=== PATIENT | female | born 1985 | race Caucasian/White ===

== ENCOUNTER 2022-05-26 18:38 | Emergency (ER) | payer MEDICARE, MEDICAID, SELFPAY ==
[2022-05-26 18:48] VITALS: BMI 30.2
[2022-05-26 19:06] VITALS: BP 113/74; PULSE 120; RESP 18; TEMP 37.2; O2SAT 95
[2022-05-26 19:31] LABS: Appearance Urine Cloudy; Color Urine Yellow; Glucose Urine UA Negative (Negative); Leukocyte Esterase Urine Moderate (2+) (Negative); Nitrite Urine Negative (Negative); Specific Gravity - Urine <= 1.005 (1.005-1.025); UMIC TRIGGER UA YES; Urine Blood Negative (Negative); Urine Ketones Negative (Negative); Urine Protein Negative (Neg-Trace)
[2022-05-26 19:39] LABS: UPreg QC Valid YES; Urine Pregnancy NEGATIVE (NEGATIVE)
[2022-05-26 19:40] LABS: Amphetamine Screen Urine Not Detected (Not Detect); Barbiturates, Urine Not Detected (Not Detect); Benzodiazepines Screen Urine Not Detected (Not Detect); Cannabinoid Screen Urine Not Detected (Not Detect); Cocaine Screen Urine Not Detected (Not Detect); Fentanyl, urine Not Detected (Not Detect); Opiate Screen Urine Not Detected (Not Detect); Phencyclidine Screen Urine Not Detected (Not Detect)
[2022-05-26 19:46] LABS: COVID-19 Test Negative (Negative); IDNOW Serial# 6674DD1D
--- NOTE | 2022-05-26 19:46 | ED_ITS ---
HPI - Psych General Chief Complaint: Psychiatric Symptoms Stated Complaint: crisis Time Seen by Provider: 05/26/22 18:47 Source: patient Mode of arrival: ambulatory Limitations: no limitations History of Present Illness HPI Narrative: Patient with history intellectual disability, mood disorder came from long term was very agitated with self-harm behavior had argument with the staff denies any SI/HI/AVH Related Data Home Medications Medication Instructions Recorded Confirmed benztropine 0.5 mg tablet 1 tab PO DAILY 05/26/22 05/26/22 citalopram 10 mg tablet 1 tab PO DAILY 05/26/22 05/26/22 clonidine HCl 0.2 mg tablet 1 tab PO TID 05/26/22 05/26/22 gabapentin 300 mg capsule 1 cap PO TID 05/26/22 05/26/22 lamotrigine 100 mg tablet 1 tab PO BID 05/26/22 05/26/22 lorazepam 0.5 mg tablet 1 tab PO BID PRN Anxiety 05/26/22 05/26/22 risperidone 0.25 mg tablet 1 tab PO BID PRN Agitation 05/26/22 05/26/22 risperidone 1 mg tablet (Risperdal) 1 tab PO QAM 05/26/22 05/26/22 risperidone 2 mg tablet (Risperdal) 1 tab PO DAILY@1600 05/26/22 05/26/22 Allergies Allergy/AdvReac Type Severity Reaction Status Date / Time No Known Allergies Allergy Unverified 02/11/20 16:06 [No Known Allergies*] Review of Systems Review of Systems: Yes all other systems are reviewed and are negative PMFSH Past Medical History Medical History Cerebral palsy Intellectual disability Seizures Social History Social History Advance Directives: No Advance Directives Information Provided: No Physical Exam Vital Signs: Vital Signs: Last Vital Signs Temp 99 F 05/26/22 19:06 Pulse 120 H 05/26/22 19:06 Resp 18 05/26/22 19:06 BP 113/74 05/26/22 19:06 Pulse Ox 95 05/26/22 19:06 O2 Del Method 05/26/22 19:06 BMI result Body Mass Index 30.2 Appearance: Alert. Oriented X3. No acute distress. Eyes: PERRLA, No Nystagmus ENT: Pharynx normal. Oral Mucosa moist Neck: Normal inspection. Neck supple. CVS: Normal heart rate and rhythm. Pulses normal. Respiratory: No respiratory distress. Equal air entry bilateral, no wheezing/rales/rhonchi Abdomen: Soft and nontender. Bowel sounds are present, no mass palpable, no CVA tenderness Skin: Skin warm and dry. Normal skin color. Normal skin turgor. Extremities: No lower extremity edema. No calf tenderness psych: Anxious , unable to focus denies any SI or HI Neuro: Oriented X 3. No motor deficit. No sensory deficit.No cerebellar signs , cranial nerves II-XII intact Medications Administered Generic Name Dose Route Start Last Admin Trade Name Freq PRN Reason Stop Dose Admin Clonidine HCl 0.2 mg 05/26/22 21:45 05/26/22 22:17 Clonidine Hcl 0.2 Mg Tablet PO 0.2 mg TID ARIANA Administration Protocol Gabapentin 300 mg 05/26/22 21:45 05/26/22 22:17 Gabapentin 300 Mg Capsule PO 300 mg TID ARIANA Administration Lamotrigine 100 mg 05/26/22 21:45 05/26/22 22:17 Lamotrigine 100 Mg Tablet PO 100 mg BID ARIANA Administration Lorazepam 0.5 mg 05/26/22 21:39 05/26/22 22:17 Lorazepam 0.5 Mg Tablet PO 0.5 mg BID PRN Administration Anxiety Risperidone 2 mg 05/27/22 16:00 05/26/22 22:17 Risperidone 2 Mg Tablet PO 2 mg DAILY@1600 ARIANA Administration Medical Decision Making Medical Decision Making MDM Narrative: Will get case management to evaluate the patient for increased agitation at long term patient UA showed moderate amount of wbc's and bacteria fall the patient is symptomatic not sure will start patient on antibiotics for UTI Lab Data [facility] Lab Attestation statement: I reviewed the patient's lab results. Labs: Lab Results 05/26/22 05/26/22 05/26/22 Range/Units 19:20 19:20 19:20 Urine Color Yellow Urine Appearance Cloudy Urine pH 6.0 (5.0-9.0) Ur Specific [place] <= 1.005 (1.005-1.025) Urine Protein Negative (Neg-Trace) mg/dL Urine Glucose (UA) Negative (Negative) mg/dL Urine Ketones Negative (Negative) mg/dL Urine Blood Negative (Negative) Urine Nitrite Negative (Negative) Ur Leukocyte Esterase Moderate (2+) H (Negative) Urine RBC 0-2 (0-2) /HPF Urine WBC 11-20 H (0-5) /HPF Ur Squamous Epith Cells 6-10 (0-2) /HPF Urine Bacteria Trace (None Seen) Hyaline Casts 0-2 (0-2) /LPF Urine Test (NEGATIVE) Urine Opiates Screen Not Detected (Not Detect) Urine Fentanyl Screen Not Detected (Not Detect) Ur Barbiturates Screen Not Detected (Not Detect) Ur Phencyclidine Scrn Not Detected (Not Detect) Ur Amphetamines Screen Not Detected (Not Detect) U Benzodiazepines Scrn Not Detected (Not Detect) Urine Cocaine Screen Not Detected (Not Detect) U Marijuana (THC) Screen Not Detected (Not Detect) COVID-19 (ALEKSANDR) Negative (Negative) [place] See Note 05/26/22 Range/Units 19:20 Urine Color Urine Appearance Urine pH (5.0-9.0) Ur Specific [place] (1.005-1.025) Urine Protein (Neg-Trace) mg/dL Urine Glucose (UA) (Negative) mg/dL Urine Ketones (Negative) mg/dL Urine Blood (Negative) Urine Nitrite (Negative) Ur Leukocyte Esterase (Negative) Urine RBC (0-2) /HPF Urine WBC (0-5) /HPF Ur Squamous Epith Cells (0-2) /HPF Urine Bacteria (None Seen) Hyaline Casts (0-2) /LPF Urine Test NEGATIVE (NEGATIVE) Urine Opiates Screen (Not Detect) Urine Fentanyl Screen (Not Detect) Ur Barbiturates Screen (Not Detect) Ur Phencyclidine Scrn (Not Detect) Ur Amphetamines Screen (Not Detect) U Benzodiazepines Scrn (Not Detect) Urine Cocaine Screen (Not Detect) U Marijuana (THC) Screen (Not Detect) COVID-19 (ALEKSANDR) (Negative) [employer] Com Discharge Plan Discharge Clinical Impression: Acute anxiety Patient Disposition: Still a Patient Prescriptions: No Action benztropine 0.5 mg tablet 1 tab PO DAILY citalopram 10 mg tablet 1 tab PO DAILY risperidone 0.25 mg tablet 1 tab PO BID PRN (Reason: Agitation) risperidone [Risperdal] 2 mg tablet 1 tab PO DAILY@1600 clonidine HCl 0.2 mg tablet 1 tab PO TID lorazepam 0.5 mg tablet 1 tab PO BID PRN (Reason: Anxiety) gabapentin 300 mg capsule 1 cap PO TID risperidone [Risperdal] 1 mg tablet 1 tab PO QAM lamotrigine 100 mg tablet 1 tab PO BID
[2022-05-26 20:24] LABS: Bacteria Urine Trace (None Seen); Hyaline Casts Urine 0-2 /LPF (0-2); RBC Urine 0-2 /HPF (0-2)
[2022-05-26] MEDS: Gabapentin 300 MG CAPSULE PO (22:17)
[2022-05-26] MEDS: LORazepam 0.5 MG TABLET PO (22:17)
[2022-05-26] MEDS: risperiDONE 2 MG TABLET PO (22:17)
[2022-05-26] MEDS: cloNIDine HCL 0.2 MG TABLET PO (22:17)
[2022-05-26] MEDS: lamoTRIgine 100 MG TABLET PO (22:17)
--- NOTE | 2022-05-26 22:35 | MHC.EDTECH ---
Patient told this adjusto writer operator that she would let this adjusto writer operator do her bloodwork only with a butterfly needle unable to find a butterfly needle now patient refuse RN was notified.
--- NOTE | 2022-05-27 00:33 | PC.NURSE ---
Patient is currently in bed appears sleeping, no distress observed/reported at this time, behavior hyper-verbal with multiple needs and questions, blood draws pending, charge nurse asked for help for lab draw @ 1930, no techs staffed for ED POD from 1900 to 2300, no help so far/provider made aware/Okayed to have lab drawn in the morning when patient is awake, med rec completed/patient is compliant with his medication, care team consult completed/no care team clinician available, VSS, will continue to monitor.
[2022-05-27 03:37] LABS: MANUAL DIFF FLAG NO
[2022-05-27 03:39] LABS: Basophils Percent Auto 0.4 % (0-2); Eosinophils Absolute Auto 0.1 X10*3/uL (0.0-0.4); Eosinophils Percent Auto 1.1 % (0-4); Hematocrit 38.5 % (37.0-47.0); Hemoglobin 12.7 g/dl (12.0-16.0); Imm Gran Abs Auto 0.03 X10*3/uL (0.00-0.03); Imm Gran Pct Auto 0.4 % (0.0-0.4); Lymphocytes Absolute Auto 2.5 X10*3/uL (1.2-4.9); Mean Corpuscular Hemoglobin 30.5 pg (27.0-33.0); Mean Corpuscular Volume 92.3 fL (80.0-98.0); Mean Platelet Volume 12.9 fL (9.4-12.3); Monocytes Absolute Auto 0.6 X10*3/uL (0.1-1.2); Monocytes Percent Auto 7.7 % (2-11); Neutrophils Absolute Auto 4.8 x10*3/uL (2.0-8.3); Neutrophils Percent Auto 59.4 % (45-73); Platelet Count 137 X10*3/uL (160-400); Red Blood Count 4.17 X10*6/uL (4.20-5.50); Red Cell Distribution Width 13.8 % (11.0-16.0); White Blood Count 8.1 X10*3/uL (4.8-10.8)
[2022-05-27 03:57] LABS: Acetaminophen LAB < 1 mcg/mL (<30); Alanine Aminotransferase 16 U/L (0-31); Albumin Level 4.4 g/dL (3.5-5.0); Alkaline Phosphatase 80 U/L (39-117); Anion Gap 13 (12-20); Aspartate Amino Transferase 19 U/L (5-31); Bilirubin Total 0.7 mg/dL (0.0-1.0); Blood Urea Nitrogen 13 mg/dL (9-16); Calcium 9.6 mg/dL (8.4-10.2); Carbon Dioxide 24 mmol/L (22-29); Chloride 108 mmol/L (96-108); Creatinine Clr Calc Pharmacy 89.5; Estimated Glomerular Filt Rate > 60; Glucose Random 94 mg/dL (60-115); Potassium 4.1 mmol/L (3.3-5.1); Salicylate < 5.0 mg/dL (15-30); Sodium 141 mmol/L (135-145); Total Protein 7.2 g/dL (6.5-8.0)
--- NOTE | 2022-05-27 06:00 | PC.NURSE ---
Patient is currently in bed appears sleeping, patient was x 2 for bathroom use, patient was incontinence of bladder x1, labs draw completed, patient is + positive for UTI/abt treatment will begin this morning at 0900, will continue to monitor.
[2022-05-27 08:30] VITALS: BP 112/71; PULSE 97; RESP 16; TEMP 37.2; O2SAT 96
[2022-05-27] MEDS: LORazepam 0.5 MG TABLET PO (08:44)
[2022-05-27] MEDS: Nitrofurantoin Monohyd/M-Cryst 100 MG CAPSULE PO (08:46)
[2022-05-27] MEDS: Escitalopram Oxalate 5 MG TABLET PO (08:46)
[2022-05-27] MEDS: cloNIDine HCL 0.2 MG TABLET PO (08:46)
[2022-05-27] MEDS: risperiDONE 1 MG TABLET PO (08:47)
[2022-05-27] MEDS: Gabapentin 300 MG CAPSULE PO (08:47)
[2022-05-27] MEDS: Benztropine Mesylate 0.5 MG TABLET PO (08:47)
[2022-05-27] MEDS: Magnesium Hydrox/Alum Hydrox 30 ML ORAL.SUSP PO (08:49)
[2022-05-27] MEDS: lamoTRIgine 100 MG TABLET PO (08:50)
--- NOTE | 2022-05-27 09:07 | MHC.EDTECH ---
Pt was requesting a shower. Clean linen and towels provided.
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
[2022-05-27] MEDS: risperiDONE 0.25 MG TABLET PO (10:19)
== END 2022-05-27 10:39 | disposition home or self-care (01) ==
PROVIDERS: Emergency Provider Internal Medicine
DX: F41.9 Anxiety disorder, unspecified (principal); R45.1 Restlessness and agitation; F39 Unspecified mood [affective] disorder; G80.9 Cerebral palsy, unspecified; F79 Unspecified intellectual disabilities; Z79.899 Other long term (current) drug therapy; Z20.822 Contact with and (suspected) exposure to COVID-19
CPT/HCPCS: 36415; 80053; 80143; 80179; 80307; 81001; 81025; 85025; 87635; 99284; 99285; S9485

== ENCOUNTER 2022-06-01 06:51 | Emergency (ER) | payer MEDICARE, MEDICAID, SELFPAY ==
[2022-06-01 06:57] VITALS: BMI 36.1
--- NOTE | 2022-06-01 06:59 | ED.PSYCH ---
HPI - Psych General Chief Complaint: Psychiatric Symptoms Stated Complaint: ran away from longterm, needs eval Time Seen by Provider: 06/01/22 06:57 Source: patient and EMS Mode of arrival: EMS History of Present Illness HPI Narrative: This is a 37 years old female presented to the emergency department by ambulance after running away from the longterm, she has history of intellectual disability, she has history of seizure disorder, she has history of CP and mood disorder. She states that she wants to hurt herself. She has been in the past last last time May 26 complaint: suicidal ideation Onset (ago): hour(s) (2) Duration: resolved prior to arrival Relieving factors: none Exacerbating factors: none Associated psychiatric symptoms: suicidal ideation Associated symptoms: denies other symptoms Treatments prior to arrival: none Related Data Home Medications Medication Instructions Recorded Confirmed benztropine 0.5 mg tablet 1 tab PO DAILY 05/26/22 06/01/22 citalopram 10 mg tablet 1 tab PO DAILY 05/26/22 06/01/22 clonidine HCl 0.2 mg tablet 1 tab PO TID 05/26/22 06/01/22 gabapentin 300 mg capsule 1 cap PO TID 05/26/22 06/01/22 lamotrigine 100 mg tablet 1 tab PO BID 05/26/22 06/01/22 lorazepam 0.5 mg tablet 1 tab PO BID PRN Anxiety 05/26/22 06/01/22 risperidone 0.25 mg tablet 1 tab PO BID PRN Agitation 05/26/22 06/01/22 risperidone 1 mg tablet (Risperdal) 1 tab PO QAM 05/26/22 06/01/22 risperidone 2 mg tablet (Risperdal) 1 tab PO DAILY@1600 05/26/22 06/01/22 citalopram 20 mg tablet 1 tab PO DAILY 06/01/22 06/01/22 Allergies Allergy/AdvReac Type Severity Reaction Status Date / Time No Known Allergies Allergy Unverified 02/11/20 16:06 [No Known Allergies*] Review of Systems Constitutional: Constitutional: Reports no additional constitutional complaints and Denies headache(s) Eyes: Eyes: Reports no additional eye complaints and Denies loss of vision ENT: Reports system reviewed and no additional complaints, except as documented and Denies headache(s) Cardiovascular: Cardiovascular: Reports no additional cardiovascular complaints Gastrointestinal: Gastrointestinal: Reports no additional gastrointestinal complaints Neurologic: Denies confusion, Denies headache(s), Denies lack of coordination, Denies focal weakness, Denies loss of vision, Denies memory loss and Denies Other visual disturbances Psychiatric: Psychiatric: Denies confusion, Denies memory loss and Reports suicidal ideation [facility] Past Medical History Medical History Cerebral palsy Intellectual disability Seizures Social History Social History Advance Directives: No Guardian: Yes (Mimi Berger [phone] per medical record) Physical Exam Vital Signs: Vital Signs: Last Vital Signs Temp 98.9 F 06/01/22 07:06 Pulse 94 06/01/22 07:06 Resp 16 06/01/22 07:06 BP 110/72 06/01/22 07:06 Pulse Ox 96 06/01/22 07:06 O2 Del Method 06/01/22 07:06 BMI result Body Mass Index 36.1 She looks well he is not toxic-appearing no distress, cooperative Const: General: No confusion Orientation/consciousness: patient oriented x3 and No confusion HEENT: Head: Yes normal to inspection General nose exam: Normal external nose present Face and sinus: Yes normal facial exam Mouth: Normal oral and palatal mucosa present Throat: Yes posterior oropharynx normal Neck: Neck: Yes normal visual inspection and Yes full ROM Chest: Chest palpation & inspection: normal inspection of the chest Resp: Effort & Inspection: normal respiratory effort Auscultation: clear to auscultation bilaterally Cardio: Jugular venous distension: no JVD Rate: regular rate Rhythm: regular rhythm GI: Inspection: Yes normal to inspection Palpation (GI): Soft to palpation, not firm, nontender and no guarding Skin: General skin exam: no rashes or lesions noted, elasticity normal and turgor normal Lesions: no lesions Rashes: no rashes Neuro: General: patient oriented x3 and No confusion Cranial nerves: Yes CN's II-XII intact bilaterally Motor exam (neuro): 5/5 motor strength present throughout Extrem: General: Yes full ROM Psych: Mental Status: mental status grossly normal Speech and movement: Clear speech present Attitude: cooperative, not belligerent and not guarded Course Course Course Narrative: Seen by crisis team cleared for discharge Reevaluation(s) Reevaluation #1: no SI at this point Time: 11:58 Medications Administered Generic Name Dose Route Start Last Admin Trade Name Da PRN Reason Stop Dose Admin Benztropine Mesylate 0.5 mg 06/01/22 10:30 06/01/22 10:55 Benztropine Mesylate 0.5 Mg Tablet PO 0.5 mg DAILY ARIANA Administration Clonidine HCl 0.2 mg 06/01/22 10:45 06/01/22 10:55 Clonidine Hcl 0.2 Mg Tablet PO 0.2 mg TID ARIANA Administration Protocol Risperidone 1 mg 06/01/22 10:30 06/01/22 10:55 Risperidone 1 Mg Tablet PO 1 mg DAILY ARIANA Administration Discontinued Medications Generic Name Dose Route Start Last Admin Trade Name Da PRN Reason Stop Dose Admin Acetaminophen 650 mg 06/01/22 09:03 06/01/22 09:13 Acetaminophen 325 Mg Tablet PO 06/01/22 09:04 650 mg ONCE ONE Administration Medical Decision Making Differential Diagnosis Differential Diagnoses: The differential diagnosis associated with the presentation includes UTI, drug abuse, anxiety, major depression Admission/Observation Consideration of admission/observation: Escalation of care including admission/observation considered Consult Healthcare Provider Management of the patient was discussed with: Behavioral Health Provider Lab Data 06/01/22 08:38 06/01/22 08:38 Labs: Lab Results 06/01/22 06/01/22 06/01/22 Range/Units 07:15 07:15 08:38 WBC 7.3 (4.8-10.8) X10*3/uL RBC 4.39 (4.20-5.50) X10*6/uL Hgb 13.4 (12.0-16.0) g/dl Hct 40.8 (37.0-47.0) % MCV 92.9 (80.0-98.0) fL MCH 30.5 (27.0-33.0) pg MCHC 32.8 (31.0-35.0) g/dl RDW 13.6 (11.0-16.0) % Plt Count 145 L (160-400) X10*3/uL MPV 12.9 H (9.4-12.3) fL Immature Gran % (Auto) 0.3 (0.0-0.4) % Neut % (Auto) 82.9 H (45-73) % Lymph % (Auto) 11.8 L (20-40) % Pierce % (Auto) 4.3 (2-11) % Eos % (Auto) 0.1 (0-4) % Baso % (Auto) 0.6 (0-2) % Lymph # (Auto) 0.9 L (1.2-4.9) X10*3/uL Pierce # (Auto) 0.3 (0.1-1.2) X10*3/uL Eos # (Auto) 0.0 (0.0-0.4) X10*3/uL Baso # (Auto) 0.0 (0.0-0.2) X10*3/uL Abs Immat Gran (auto) 0.02 (0.00-0.03) X10*3/uL Absolute Neuts (auto) 6.0 (2.0-8.3) x10*3/uL Absolute Nucleated RBC 0.000 (0.0-0.012) X10*3/uL Nucleated RBC % (auto) 0.0 (0.0-0.2) /100WBC Sodium (135-145) mmol/L Potassium (3.3-5.1) mmol/L Chloride (96-108) mmol/L Carbon Dioxide (22-29) mmol/L Anion Gap (12-20) BUN (9-16) mg/dL Creatinine (0.5-1.4) mg/dL Estim Creat Clear Calc Estimated GFR Random Glucose (60-115) mg/dL Calcium (8.4-10.2) mg/dL Total Bilirubin (0.0-1.0) mg/dL AST (5-31) U/L ALT (0-31) U/L Alkaline Phosphatase (39-117) U/L Total Protein (6.5-8.0) g/dL Albumin (3.5-5.0) g/dL Urine Opiates Screen Not Detected (Not Detect) Urine Fentanyl Screen Not Detected (Not Detect) Ur Barbiturates Screen Not Detected (Not Detect) Ur Phencyclidine Scrn Not Detected (Not Detect) Ur Amphetamines Screen Not Detected (Not Detect) U Benzodiazepines Scrn Not Detected (Not Detect) Urine Cocaine Screen Not Detected (Not Detect) U Marijuana (THC) Screen Not Detected (Not Detect) COVID-19 (ALEKSANDR) Negative (Negative) COVID-19 Clin Com See Note 06/01/22 Range/Units 08:38 WBC (4.8-10.8) X10*3/uL RBC (4.20-5.50) X10*6/uL Hgb (12.0-16.0) g/dl Hct (37.0-47.0) % MCV (80.0-98.0) fL MCH (27.0-33.0) pg MCHC (31.0-35.0) g/dl RDW (11.0-16.0) % Plt Count (160-400) X10*3/uL MPV (9.4-12.3) fL Immature Gran % (Auto) (0.0-0.4) % Neut % (Auto) (45-73) % Lymph % (Auto) (20-40) % Pierce % (Auto) (2-11) % Eos % (Auto) (0-4) % Baso % (Auto) (0-2) % Lymph # (Auto) (1.2-4.9) X10*3/uL Pierce # (Auto) (0.1-1.2) X10*3/uL Eos # (Auto) (0.0-0.4) X10*3/uL Baso # (Auto) (0.0-0.2) X10*3/uL Abs Immat Gran (auto) (0.00-0.03) X10*3/uL Absolute Neuts (auto) (2.0-8.3) x10*3/uL Absolute Nucleated RBC (0.0-0.012) X10*3/uL Nucleated RBC % (auto) (0.0-0.2) /100WBC Sodium 141 (135-145) mmol/L Potassium 4.3 (3.3-5.1) mmol/L Chloride 108 (96-108) mmol/L Carbon Dioxide 23 (22-29) mmol/L Anion Gap 14 (12-20) BUN 11 (9-16) mg/dL Creatinine 0.98 (0.5-1.4) mg/dL Estim Creat Clear Calc 76.2 Estimated GFR > 60 Random Glucose 178 H (60-115) mg/dL Calcium 9.8 (8.4-10.2) mg/dL Total Bilirubin 0.4 (0.0-1.0) mg/dL AST 14 (5-31) U/L ALT 13 (0-31) U/L Alkaline Phosphatase 87 (39-117) U/L Total Protein 7.6 (6.5-8.0) g/dL Albumin 4.7 (3.5-5.0) g/dL Urine Opiates Screen (Not Detect) Urine Fentanyl Screen (Not Detect) Ur Barbiturates Screen (Not Detect) Ur Phencyclidine Scrn (Not Detect) Ur Amphetamines Screen (Not Detect) U Benzodiazepines Scrn (Not Detect) Urine Cocaine Screen (Not Detect) U Marijuana (THC) Screen (Not Detect) COVID-19 (ALEKSANDR) (Negative) COVID-19 Clin Com Independent Historian Clinical information obtained from an independent historian. History obtained from or confirmed by: EMS I spoke with the EMS crew she was, cooperative during the transport. Discharge Plan Discharge Clinical Impression: Acute anxiety Prescriptions: No Action benztropine 0.5 mg tablet 1 tab PO DAILY citalopram 10 mg tablet 1 tab PO DAILY risperidone 0.25 mg tablet 1 tab PO BID PRN (Reason: Agitation) risperidone [Risperdal] 2 mg tablet 1 tab PO DAILY@1600 clonidine HCl 0.2 mg tablet 1 tab PO TID lorazepam 0.5 mg tablet 1 tab PO BID PRN (Reason: Anxiety) gabapentin 300 mg capsule 1 cap PO TID risperidone [Risperdal] 1 mg tablet 1 tab PO QAM lamotrigine 100 mg tablet 1 tab PO BID citalopram 20 mg tablet 1 tab PO DAILY Interventions: [place]-Suicide Risk Severity Scale Last Done: 06/01/22 07:02
[2022-06-01 07:06] VITALS: BP 110/72; PULSE 94; RESP 16; TEMP 37.2; O2SAT 96
[2022-06-01 07:40] LABS: Amphetamine Screen Urine Not Detected (Not Detect); Barbiturates, Urine Not Detected (Not Detect); Benzodiazepines Screen Urine Not Detected (Not Detect); Cannabinoid Screen Urine Not Detected (Not Detect); Cocaine Screen Urine Not Detected (Not Detect); Fentanyl, urine Not Detected (Not Detect); Opiate Screen Urine Not Detected (Not Detect); Phencyclidine Screen Urine Not Detected (Not Detect)
[2022-06-01 07:47] LABS: COVID-19 Test Negative (Negative); IDNOW Serial# 16C4AD1C
--- OUTSIDE RECORDS SUMMARY | 2022-06-01 07:49 | XMS_ITS | Continuity of Care Document ---
:1985 Author Organization [facility] Address [address] [place] [id number]- Care Team Providers Name Role Phone Rosalinda Rayo MD Primary Care Physician Encounter [facility] Date(s): 02/17/20 - 02/18/[address] [address]- [facility] Encounter Diagnosis Agitation (Final) - 02/17/20 Discharge Disposition: A-D/C Home Attending Physician: Candy Madden DO Admitting Physician: Candy Madden DO Referring Physician: Not on Staff, Referring MD Allergies, Adverse Reactions, Alerts Substance Reaction Severity Status NKA Active Immunizations Given and Recorded Vaccine Date Status Refusal Reason tetanus/diphtheria/pertussis, acel(Tdap) 08/14/18 Given Medications acetaminophen 325 mg oral tablet 650 mg, By Mouth, Every 6 hours, PRN, /Headache, Refills 0, Maintenance, Pain , Mild, 05/22/18 12:48:35 EST Start Date: 05/22/18 Status: OrderedAtivan 0.5 mg oral tablet = 0.5 mg, By Mouth, 2 times a day, 0 Refills, Maintenance, 05/22/18 12:47:58 EST, Tablet Start Date: 05/22/18 Status: OrderedCeleXA 40 mg oral tablet 40 mg, By Mouth, Daily, Refills 0, Maintenance, 05/22/18 12:47:11 EST Start Date: 05/22/18 Status: OrderedcloNIDine 0.2 mg oral tablet 0.2 mg, By Mouth, 2 times a day, Refills 0, Maintenance, 05/22/18 12:47:31 EST Start Date: 05/22/18 Status: OrderedhydrOXYzine pamoate 25 mg oral capsule = 25 mg, By Mouth, Every 6 hours, PRN Anxiety, 0 Refills, Maintenance, 05/22/18 12:48:40 EST, Capsule Start Date: 05/22/18 Status: OrderedLaMICtal 100 mg oral tablet 100 mg, By Mouth, 2 times a day, Refills 0, Maintenance, 05/22/18 12:47:42 EST Start Date: 05/22/18 Status: OrderedrisperiDONE 1 mg/mL oral solution 0.5 mL = 0.5 mg, By Mouth, 3 times a day, 0 Refills, Maintenance, 05/22/18 12:48:26 EST, Solution Start Date: 05/22/18 Status: OrderedtraZODone 50 mg oral tablet 50 mg, By Mouth, Daily at bedtime, PRN, May repeat dose once if first dose is ineffective, Refills 0, Maintenance, Sleep, 05/22/18 12:48:45 EST Start Date: 05/22/18 Status: Ordered Results Orders for Microbiology Reports Name Date Urine Culture (URINE CULTURE) 02/17/20 Microbiology Reports TEST:Urine Culture STATUS:Auth (Verified) BODY SITE: SOURCE:URINE COLLECTED DATE/TIME:02/17/20 8:40 PMUrine Culture SPECIMEN DESCRIPTION : URINE CLEAN CATCH/MIDSTREAM SPECIAL REQUESTS : NONE Reflexed from [id number] CULTURE : Mixed bacterial shad, indicative of urogenital contamination. Includes Group B beta strep. If this patient is , please refer to ACOG guidelines (2002) for appropriate screening and management of colonized women. REPORT STATUS : FINAL 02/18/2020 Vital Signs Most recent to oldest 1 2 3 4 [Reference Range]: Oxygen Saturation 97 % 96 % 97 % [94-100 %] (02/18/20 2:03 PM) (02/18/20 9:49 AM) (02/18/20 3:18 AM) Pulse Rate [55-90 bpm] 110 bpm 112 bpm 96 bpm *H* *H* *H* (02/18/20 2:03 PM) (02/18/20 9:49 AM) (02/18/20 3:18 AM) Blood Pressure 127/82 mm Hg 127/71 mm Hg 130/60 mm Hg [90-138/55-84 mm Hg] (02/18/20 2:03 PM) (02/18/20 9:49 AM) (02/18/20 3 :18 AM) Respiratory Rate [16-30 16 br/min 20 br/min 16 br/min 16 b r/min br/min] (02/18/20 2:03 PM) (02/18/20 9:49 AM) (02/18/20 5:04 AM) (02/18/20 5:04 AM) Temperature [96.8-100.4 97.2 DegF 98.3 DegF 98.7 DegF DegF] (02/18/20 2:03 PM) (02/18/20 3:18 AM) (02/17/20 3:23 PM) Mode of Delivery Room air Room air Room air (Oxygen) (02/18/20 2:03 PM) (02/18/20 9:49 AM) (02/18/20 3:18 AM) Blood pressure sites Arm, right Arm, left Arm, right (02/18/20 9:49 AM) (02/18/20 3:18 AM) (02/17/20 6:33 PM) Temperature Route Oral Oral Axillary (02/18/20 2:03 PM) (02/18/20 3:18 AM) (02/17/20 3:23 PM) Social History Social History Type Response Smoking Status Never smoker entered on: 03/10/18 Sex
--- OUTSIDE RECORDS SUMMARY | 2022-06-01 07:49 | XMS_ITS | Continuity of Care Document ---
:1985 Author Organization [facility] Address [address] [place] [id number]- Care Team Providers Name Role Phone Paulette Moran MD Primary Care Physician [phone] [id number] Date[facility]11/19 - 06/12/[address] [address]- [facility] Encounter Diagnosis Agitation (Final) - 06/11/19 Discharge Disposition: A-D/C Home Attending Physician: Kylah Acuña MD Admitting Physician: Kylah Acuña MD Referring Physician: Not on Staff, Referring MD [...] 12:48:45 EST Start Date: 05/22/18 Status: Ordered Vital Signs Most recent to oldest 1 2 3 [Reference Range]: Oxygen Saturation [94-100 %] 98 % 98 % 96 % (06/12/19 3:40 AM) (06/11/19 10:53 PM) (06/11/19 4: 18 PM) Pulse Rate [55-90 bpm] 98 bpm 114 bpm 96 bpm *H* *H* *H* (06/12/19 3:40 AM) (06/11/19 10:53 PM) (06/11/19 4: 18 PM) Blood Pressure [90-138/55-84 103/69 mm Hg 117/73 mm Hg 109 /74 mm Hg mm Hg] (06/12/19 3:40 AM) (06/11/19 10:53 PM) (06/11/19 4: 18 PM) Respiratory Rate [16-30 18 br/min 16 br/min 16 br/mi n br/min] (06/12/19 3:40 AM) (06/11/19 10:53 PM) (06/11/19 4: 18 PM) Temperature [96.8-100.4 97.4 DegF 97.4 DegF 98.3 Deg F DegF] (06/12/19 3:40 AM) (06/11/19 10:53 PM) (06/11/19 12 :56 PM) Liters per Minute 0 L/min (06/11/19 12:56 PM) Mode of Delivery (Oxygen) Room air Room air Room a ir (06/12/19 3:40 AM) (06/11/19 10:53 PM) (06/11/19 4: 18 PM) Blood pressure sites Arm, left Arm, left Arm, left (06/12/19 3:40 AM) (06/11/19 10:53 PM) (06/11/19 4: 18 PM) Temperature Route Oral Axillary Axillary (06/12/19 3:40 AM) (06/11/19 10:53 PM) (06/11/19 12 :56 PM) Social History Social History Type Response Smoking Status Never smoker entered on: 03/10/18 Sex
--- OUTSIDE RECORDS SUMMARY | 2022-06-01 07:49 | XMS_ITS ---
:1985 Author Care Team Providers Name Role Phone YOLY FULLER MD ([facility]) Primary Care Provide r [phone] Allergies Code Code System Name Reaction Severity Status Onset NKDA ? Medications Name Status Start Date Stop Date ? ? acetaminophen Completed ? 06/14/2021 bacitracin Active ? Not available benztropine 0.5 mg tablet Active ? Not av ailable Celexa 40 mg tablet Active ? Not availabl e Take 1 tablet every day by oral route. citalopram 10 mg tablet Completed ? 06/14/19 citalopram 20 mg tablet Active ? Not avai lable clonidine 0.2 mg/24 hr weekly transdermal patch Completed ? 06/14/2021 Apply 1 patch every week by transdermal route. clonidine HCl 0.2 mg tablet Active ? Not available clotrimazole-betamethasone 1 %-0.05 % topical cream Active ? Not available famciclovir 500 mg tablet Active ? Not av ailable Flagyl 500 mg tablet Completed ? 06/14/2021 Take 1 tablet every 8 hours by oral route for 7 days. fluconazole 150 mg tablet Completed ? 2021 fruit of the earth skin care Active ? Not available APPLY A THIN LAYER TOPICALLY 3 TIMES DAILY X 5 DAYS gabapentin 300 mg capsule Active ? Not av ailable hydroxyzine HCl 50 mg tablet Active ? Not available lamotrigine 100 mg tablet Active ? Not av ailable levonorgestrel 0.15 mg-ethinyl estradiol 30 mcg Completed ? 06/14/2021 tablets,3 mos pack(91) lorazepam 0.5 mg tablet Active ? Not avai lable mupirocin Active ? Not available Mylanta Active ? Not available naltrexone 50 mg tablet Active ? Not avai lable ondansetron HCl 8 mg tablet Active ? Not available risperidone 2 mg tablet Active ? Not avai lable Robitussin Cough and Cold CF Completed ? sulfamethoxazole 800 mg-trimethoprim 160 mg tablet Active ? Not available triamcinolone acetonide 0.1 % topical cream Active ? Not available APPLY THIN LAYER TO AFFECTED AREA TWICE A DAY X 10 DAYS Vistaril 50 mg capsule Completed ? 2 Take 1 capsule 4 times a day by oral route. Problems Name Status Onset Date Source ? Bipolar Disorder Active ? ? Psychotic Disorder Active ? ? Self-injurious Behavior Active ? ? Procedures None recorded. Results Lab Results Date Name Specimen Result Interpretation Description Value Range Status Address ? 03/10/2022 SARS CoV 2 ? Result negative ? ? [facility] RNA [place] : (COVID-19), [address] security project manager-PCR, [address], Respiratory [place] Specimen 08/14/2018 Bacterial ? Cornelia negative ? Final [facility] Vaginosis Species, Refer ence Panel, Direct Probe Labo ratories Vaginal : [address], [place] ? ? ABNORMAL Gardnerella positive ? Final [facility] Vaginalis, Refere nce Direct Laboratori es : [address], [place] ? ? ? Trichomonas negative ? Final [facility] Vaginal[facility], Refere nce Direct Laboratori es : [address], [place] 08/14/2018 Culture, Urine ? Specimen clean ? Final [facility] state Urine Description catch Refer ence (urine) Laborator ies : [address], [place] ? ? Urine ? Special none ? Final [facility] Requests Referenc e Laboratori es : [address], [place] ? ? Urine ? Culture no growth ? Final [facility] ate Reference Laboratori es : [address], [place] ? ? Urine ? Report final ? Final [facility] Status Referen ce 9 Laboratori es : [address], [place] 08/14/2018 Urinalysis, ? Ketone Negative ? ? [facility] Dipstick [place] ow: [address], [place] ? ? ? Bilirubin Negative ? ? [facility] [place] : [address], [place] ? ? ? Glucose Negative ? ? [facility] [place] : [address], [place] ? ? ? Appearance cloudy ? ? [facility] [place] : [address], [place] ? ? ? Color yellow ? ? [facility] [place] : [address], [place] ? ? ? Specific 1.005 ? ? [facility] [place]: [address], [place] ? ? ? Blood Negative( ? ? [facility] non-hemol [place]: yzed) [address], [place] ? ? ? Ph 6.0 ? ? [facility] [place] : [address], [place] ? ? ? Protein Negative ? ? [facility] [place] : [address], [place] ? ? ? Urobilinogen 0.2-Em ? ? [facility] l [place] : [address], [place] ? ? ? Nitrite negative ? ? [facility] [place] : [address], [place] ? ? ? Leukocytes Moderate ? ? [facility] [place] : [address], [place] Past Encounters Encounter Date Diagnosis Provider 03/10/2022 Nausea, Vomiting and Diarrhea; Libby Persaud, QUENCHING MACHINE OPERATOR: [address], [place] [facility], [place] [phone], Ph. 06/14/2021 Herpes Simplex Anju Rowe A: [address], [place], [place] [phone], Ph. Social History Tobacco Smoking Status Never Smoker Vaccine List None recorded. Plan of Care Patient Instructions Avoid spicy or high fiber foods. Banana s,Rice,Applesauce,[place] are constipating foods. Reminders Provider Appointments None recorded. ? ? Lab None recorded. ? ? Referral None recorded. ? ? Procedures None recorded. ? ? Surgeries None recorded. ? ? Imaging None recorded. ? ? Vitals Blood Pressure 131/86 mm[Hg]
--- OUTSIDE RECORDS SUMMARY | 2022-06-01 07:49 | XMS_ITS | Continuity of Care Document ---
:1985 Author Organization [facility] Address [address] [place] [id number] Care Team Providers Name Role Phone Rosalinda Rayo MD Primary Care Physician Encounter [facility] Date(s): 08/12/20 - 08/13/[address] [address]- Encounter Diagnosis Agitation (Final) - 08/13/20 Superficial abrasion (Final) - 08/13/20 Superficial abrasion (Final) - 08/13/20 Agitation (Final) - 08/13/20 Discharge Disposition: A-D/C Home Attending Physician: Ange Nicole DO Admitting Physician: Ange Nicole DO Referring Physician: Not on Staff, Referring [...] Ordered Vital Signs Most recent to oldest [Reference Range]: 1 2 Oxygen Saturation [94-100 %] 98 % 96 % (08/13/20 4:35 AM) (08/12/20 7:08 PM) Pulse Rate [55-90 bpm] 86 bpm 110 bpm (08/13/20 4:35 AM) *H* (08/12/20 7:08 PM) Blood Pressure [90-138/55-84 mm Hg] 122/66 mm Hg 124/ 65 mm Hg (08/13/20 4:35 AM) (08/12/20 7:08 PM) Respiratory Rate [16-30 br/min] 16 br/min 19 br/mi n (08/13/20 4:35 AM) (08/12/20 7:08 PM) Temperature [96.8-100.4 DegF] 97.8 DegF 98.0 DegF (08/13/20 4:35 AM) (08/12/20 7:08 PM) Mode of Delivery (Oxygen) Room air Room air (08/13/20 4:35 AM) (08/12/20 7:08 PM) Blood pressure sites Arm, right Arm, right (08/13/20 4:35 AM) (08/12/20 7:08 PM) Temperature Route Oral Oral (08/13/20 4:35 AM) (08/12/20 7:08 PM) Social History Social History Type Response Smoking Status Never smoker entered on: 03/10/18 Sex
--- OUTSIDE RECORDS SUMMARY | 2022-06-01 07:49 | XMS_ITS | Encounter Summary ---
:1985 Author Care Team Providers Name Role Phone Rosalinda Rayo MD ([facility]) Primary Care Provide r [phone] Reason for Visit COVID-19 symptoms woke up this morning vomiting, diarrhea, loss of appetitehousemate is positive for covid Assessment and Plan 1. Nausea, vomiting and diarrhea ? SARS CoV 2 RNA (COVID-19), QL, manager reimbursement-PC R, respiratory specimen ? managing nausea from cancer treatment : care instructions 2. Nausea and vomiting ? ondansetron HCl 8 mg tablet ? nausea and vomiting: care instruction s Discussion Note Reviewed patient?s medical history and co-morbidities addressed. Plan of Care Patient Instructions Avoid spicy or high fiber foods. Banana s,Rice,Applesauce,[place] are constipating foods. Reminders Provider Appointments None recorded. ? ? Lab SARS CoV 2 RNA (COVID-19), QL, 03/10/2022 [facility] Mark manager reimbursement-PCR, Respiratory Specimen Referral None recorded. ? ? Procedures None recorded. ? ? Surgeries None recorded. ? ? Imaging None recorded. ? ? Medications Name Start Date ? ? bacitracin ? benztropine 0.5 mg tablet ? Celexa 40 mg tablet ? Take 1 tablet every day by oral route. citalopram 20 mg tablet ? clonidine HCl 0.2 mg tablet ? TAKE 1 TABLET 3 TIMES A DAY AT 8:00AM, NOON AND 8:00P M, ALL DOSES +/- 2 HOURS clotrimazole-betamethasone 1 %-0.05 % topical cream ? famciclovir 500 mg tablet ? Take 3 tablets every day by oral route as directed fo r 1 day. fruit of the earth skin care ? APPLY A THIN LAYER TOPICALLY 3 TIMES DAILY X 5 DAYS gabapentin 300 mg capsule ? hydroxyzine HCl 50 mg tablet ? lamotrigine 100 mg tablet ? Take 1 tablet twice a day by oral route. lorazepam 0.5 mg tablet ? Take 1 tablet twice a day by oral route. mupirocin ? Mylanta ? naltrexone 50 mg tablet ? Take 1 tablet every day by oral route. ondansetron HCl 8 mg tablet ? TAKE 1 TABLET 3 TIMES A DAY BY ORAL ROUTE NEEDED. risperidone 2 mg tablet ? Take 1 tablet twice a day by oral route. sulfamethoxazole 800 mg-trimethoprim 160 mg tablet ? triamcinolone acetonide 0.1 % topical cream ? APPLY THIN LAYER TO AFFECTED AREA TWICE A DAY X 10 DA YS Medications Administered None recorded. Vitals None recorded. Results Lab Results Date Name Specimen Result Interpretation Description Value Range Status Address ? 03/10/2022 SARS CoV 2 RNA ? Result negative ? ? [facility] (COVID-19), [place], [place]: [address] , Respiratory [place] Specimen Allergies Code Code System Name Reaction Severity Onset NKDA ? ? ? Problems Name Status Onset Date Source ? Bipolar Disorder Active ? ? Psychotic Disorder Active ? ? Self-injurious Behavior Active ? ? Procedures None recorded. Vaccine List None recorded. Social History Tobacco Smoking Status Never Smoker What was the date of your most recent tobacco screening? What is your level of alcohol consumption? None Which illicit or recreational drugs have you used? none Functional Status Unknown. 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 History of Present Illness ? COVID-19 Symptoms September 2019 Reported By: Patient Note: <div>Patient reports nausea, vomiting numerous times last night. Patient is reporting crampy abdominal pain, periumbilical, which is less intense this morning. She is able to drink water withoutproblems this morning. She lives in a residential where another resident tested positive for covid 194 days ago.</div><div>Patient denies any other symptoms suggestive of Covid 19 infection, including cough, shortness of breath, headache, runny or stuffy nose, sore throat, fever, chills, body aches, severe fatigue or loss of taste/smell.</div> Review of Systems ? Comprehensive Adult Problem ROS Reported By: Patient Constitutional: Constitutional: loss of appe tite, fatigue Eyes: Eyes: no eye pain, no blurry vision ENMT: ENMT: no ear pain, no ear di scharge Cardiovascular: Cardiovascular: no chest michela n, normal heart rate Chest/Breasts: Breasts: no lumps, no tender ness Respiratory: Respiratory: no cough, no wh eezing Gastrointestinal: GI: nausea, vomiting, diarrh ea Genitourinary: : no discharge, no blood i n urine Musculoskeletal: Musculoskeletal: no soft tis jennie swelling, no joint swelling Skin: Skin: no pain, no itchiness Neurological symptoms: Neuro: no numbness, no weakn ess Psychiatric: Psych: no depression, no anx iety Endocrine: Endocrine: normal drinking, no temperature intolerance Allergic/Immunologic: Allergy/Immunologic: no snee zing, no runny nose Physical Exam ? COVID-19 Exam Reported By: Patient Notes: <div>Patient is awake and al ert, oriented x 3. Patient is moving all extremities. Skin color is n ormal. she is speaking in full sentences without any respiratory dist ress. Brief PE was conducted by provider mj.</div>
[2022-06-01 08:44] LABS: MANUAL DIFF FLAG NO
[2022-06-01 08:47] LABS: Basophils Percent Auto 0.6 % (0-2); Eosinophils Percent Auto 0.1 % (0-4); Hematocrit 40.8 % (37.0-47.0); Hemoglobin 13.4 g/dl (12.0-16.0); Imm Gran Abs Auto 0.02 X10*3/uL (0.00-0.03); Imm Gran Pct Auto 0.3 % (0.0-0.4); Lymphocytes Absolute Auto 0.9 X10*3/uL (1.2-4.9); Lymphocytes Percent Auto 11.8 % (20-40); Mean Corpuscular HGB Conc 32.8 g/dl (31.0-35.0); Mean Corpuscular Hemoglobin 30.5 pg (27.0-33.0); Mean Corpuscular Volume 92.9 fL (80.0-98.0); Mean Platelet Volume 12.9 fL (9.4-12.3); Monocytes Absolute Auto 0.3 X10*3/uL (0.1-1.2); Monocytes Percent Auto 4.3 % (2-11); Neutrophils Percent Auto 82.9 % (45-73); Platelet Count 145 X10*3/uL (160-400); Red Blood Count 4.39 X10*6/uL (4.20-5.50); Red Cell Distribution Width 13.6 % (11.0-16.0); White Blood Count 7.3 X10*3/uL (4.8-10.8)
[2022-06-01 09:08] LABS: Alanine Aminotransferase 13 U/L (0-31); Albumin Level 4.7 g/dL (3.5-5.0); Alkaline Phosphatase 87 U/L (39-117); Anion Gap 14 (12-20); Aspartate Amino Transferase 14 U/L (5-31); Bilirubin Total 0.4 mg/dL (0.0-1.0); Blood Urea Nitrogen 11 mg/dL (9-16); Calcium 9.8 mg/dL (8.4-10.2); Carbon Dioxide 23 mmol/L (22-29); Chloride 108 mmol/L (96-108); Creatinine Clr Calc Pharmacy 76.2; Estimated Glomerular Filt Rate > 60; Glucose Random 178 mg/dL (60-115); Potassium 4.3 mmol/L (3.3-5.1); Sodium 141 mmol/L (135-145); Total Protein 7.6 g/dL (6.5-8.0)
[2022-06-01] MEDS: Acetaminophen 325 MG TABLET 650 MG PO (09:13)
--- NOTE | 2022-06-01 09:31 | PC.NURSE ---
Tylenol given for headache
[2022-06-01] MEDS: risperiDONE 1 MG TABLET PO (10:55)
[2022-06-01] MEDS: Benztropine Mesylate 0.5 MG TABLET PO (10:55)
[2022-06-01] MEDS: cloNIDine HCL 0.2 MG TABLET PO (10:55)
== END 2022-06-01 12:29 | disposition home or self-care (01) ==
PROVIDERS: Emergency Provider Emergency Medicine
DX: F41.1 Generalized anxiety disorder (principal); F43.0 Acute stress reaction; Z20.822 Contact with and (suspected) exposure to COVID-19; Z79.899 Other long term (current) drug therapy
CPT/HCPCS: 36415; 80053; 80307; 85025; 87635; 99284

== ENCOUNTER 2022-12-03 14:41 | Emergency (ER) | payer MEDICARE, MEDICAID, SELFPAY ==
[2022-12-03 15:02] VITALS: BP 114/96; PULSE 105; O2SAT 99; BMI 31.9
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
--- NOTE | 2022-12-03 15:54 | PC.NURSE ---
pt is requesting to see the provider and if she is able to have tylenol because she is verbalizing that she has a 10/10 headache.
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
--- NOTE | 2022-12-03 17:21 | PHA.MEDREC ---
Pharmacy Consult ? Medication Reconciliation Pharmacy has reviewed the medication reconciliation competed by nursing. Patient came with list from [facility]. Iwona Richard, TonoD
[2022-12-03 18:41] LABS: MANUAL DIFF FLAG NO
[2022-12-03 18:42] LABS: Basophils Absolute Auto 0.1 X10*3/uL (0.0-0.2); Basophils Percent Auto 0.6 % (0-2); Eosinophils Absolute Auto 0.1 X10*3/uL (0.0-0.4); Eosinophils Percent Auto 0.6 % (0-4); Hematocrit 39.6 % (37.0-47.0); Hemoglobin 12.9 g/dl (12.0-16.0); Imm Gran Abs Auto 0.02 X10*3/uL (0.00-0.03); Imm Gran Pct Auto 0.2 % (0.0-0.4); Lymphocytes Percent Auto 22.4 % (20-40); Mean Corpuscular HGB Conc 32.6 g/dl (31.0-35.0); Mean Corpuscular Hemoglobin 30.7 pg (27.0-33.0); Mean Corpuscular Volume 94.3 fL (80.0-98.0); Mean Platelet Volume 12.8 fL (9.4-12.3); Monocytes Absolute Auto 0.6 X10*3/uL (0.1-1.2); Monocytes Percent Auto 6.6 % (2-11); Neutrophils Absolute Auto 6.2 x10*3/uL (2.0-8.3); Neutrophils Percent Auto 69.6 % (45-73); Platelet Count 128 X10*3/uL (160-400); Red Cell Distribution Width 13.1 % (11.0-16.0); White Blood Count 8.8 X10*3/uL (4.8-10.8)
[2022-12-03 19:13] LABS: UPreg QC Valid YES; Urine Pregnancy NEGATIVE (NEGATIVE)
[2022-12-03 19:28] VITALS: BP 115/83; PULSE 96; RESP 20; TEMP 36.5; O2SAT 96
[2022-12-03 19:47] LABS: Alanine Aminotransferase 17 U/L (0-31); Albumin Level 4.4 g/dL (3.5-5.0); Alkaline Phosphatase 96 U/L (39-117); Anion Gap 16 (12-20); Aspartate Amino Transferase 19 U/L (5-31); Bilirubin Total 0.3 mg/dL (0.0-1.0); Blood Urea Nitrogen 13 mg/dL (9-16); Carbon Dioxide 25 mmol/L (22-29); Chloride 104 mmol/L (96-108); Creatinine Clr Calc Pharmacy 75.1; Estimated Glomerular Filt Rate > 60; Ethanol < 10 mg/dL; Glucose Random 128 mg/dL (60-115); Potassium 3.5 mmol/L (3.3-5.1); Sodium 141 mmol/L (135-145); Total Protein 7.7 g/dL (6.5-8.0)
[2022-12-03 20:01] LABS: Amphetamine Screen Urine Not Detected (Not Detect); Barbiturates, Urine Not Detected (Not Detect); Benzodiazepines Screen Urine Not Detected (Not Detect); Cannabinoid Screen Urine Not Detected (Not Detect); Cocaine Screen Urine Not Detected (Not Detect); Fentanyl, urine Not Detected (Not Detect); Opiate Screen Urine Not Detected (Not Detect); Phencyclidine Screen Urine Not Detected (Not Detect)
[2022-12-04 00:01] VITALS: BP 122/81; PULSE 100; RESP 20; TEMP 36.4; O2SAT 96
[2022-12-04 00:54] LABS: Acetaminophen LAB < 17 mcg/mL (<30); Salicylate < 5.0 mg/dL (15-30)
--- NOTE | 2022-12-04 05:49 | PC.NURSE ---
Patient slept through the night, no distress observed/reported, medication rec completed/pending provider's approval, behavior non concerning but address multiple needs, hyper-verbal at times it triggers other patients, , disposition per care team is current provider, group will come pick her up in the morning, VSS, labs completed/resulted, will continue to monitor.
[2022-12-04] MEDS: Ibuprofen 600 MG TABLET PO (06:08)
[2022-12-04] MEDS: Magnesium Hydrox/Alum Hydrox 30 ML ORAL.SUSP PO (07:35)
[2022-12-04] MEDS: Ondansetron ODT 4 MG TAB.RAPDIS TRANSLINGU (08:31)
--- NOTE | 2022-12-04 09:13 | PC.NURSE ---
Pt walking around milieu, calm & cooperative. Pt is agreeable, but very talkative. Pt complains of stomach pain/nausea. Medicated with PRN. Pt frequently seeks out staff, non-destructive. Pt medicated with PRN for headache, pt states improvement in symptoms. Plan for dc to long-term.
[2022-12-04] MEDS: risperiDONE 1 MG TABLET PO (09:45)
[2022-12-04] MEDS: cloNIDine HCL 0.2 MG TABLET PO (09:48)
[2022-12-04] MEDS: LORazepam 0.5 MG TABLET PO (09:48)
[2022-12-04] MEDS: lamoTRIgine 100 MG TABLET PO (09:49)
[2022-12-04] MEDS: Naltrexone HCl 50 MG TABLET PO (09:49)
[2022-12-04] MEDS: Escitalopram Oxalate 10 MG TABLET PO (09:49)
[2022-12-04] MEDS: Gabapentin 300 MG CAPSULE PO (09:49)
[2022-12-04] MEDS: Escitalopram Oxalate 5 MG TABLET PO (09:54)
--- NOTE | 2022-12-04 13:08 | MHC.CARE ---
CARE Team places a call to program operations forester Ms. Alyson Rosado to arrange a return to the senior care. No answer, message left.
[2022-12-04 13:44] VITALS: BP 102/60; PULSE 74; RESP 16; TEMP 36.9; O2SAT 98
--- NOTE | 2022-12-04 14:13 | MHC.CARE ---
CARE Team speaks with Ms. Alyson Rosado who asks that pt be transported back to the senior living via ambulance as she has no staff to collect pt from the ED. Pt's RN has been advised and stated that she will pass this along to the ED medical office secretary. Pt will be returning to her senior living at: [address] [facility]. [id number]
--- NOTE | 2022-12-04 14:30 | PC.NURSE ---
pt sleeping in common room, ate lunch, calm/cooperative. no distress observed. breathing regularly.
--- NOTE | 2022-12-04 15:32 | PC.NURSE ---
pt discharged with paperwork and all belongings. stable. regular respiration rate, no acute distress noted. no pain reported. no si/hi reported. ate and drank po intake well. recent VSS. calm, cooperative. alert/oriented. via ambulance
== END 2022-12-04 15:25 | disposition home or self-care (01) ==
PROVIDERS: Nurse Practitioner Family; Emergency Provider Emergency Medicine Emergency Medical Services
DX: F41.1 Generalized anxiety disorder (principal); F43.0 Acute stress reaction; F91.9 Conduct disorder, unspecified; Z79.899 Other long term (current) drug therapy
CPT/HCPCS: 36415; 80053; 80143; 80179; 80307; 81001; 81025; 85025; 99285

== ENCOUNTER 2023-03-09 17:26 | Emergency (ER) | payer MEDICARE, MEDICAID, SELFPAY ==
[2023-03-09 17:39] VITALS: BP 115/70; PULSE 102; O2SAT 96
[2023-03-09 17:43] VITALS: BP 129/73; PULSE 96; RESP 16; TEMP 37.1; O2SAT 99; BMI 36.1
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
[2023-03-09 19:23] LABS: MANUAL DIFF FLAG NO
[2023-03-09 19:26] LABS: Basophils Percent Auto 0.3 % (0-2); Eosinophils Absolute Auto 0.1 X10*3/uL (0.0-0.4); Eosinophils Percent Auto 0.9 % (0-4); Hematocrit 38.1 % (37.0-47.0); Hemoglobin 12.4 g/dl (12.0-16.0); Imm Gran Abs Auto 0.02 X10*3/uL (0.00-0.03); Imm Gran Pct Auto 0.3 % (0.0-0.4); Lymphocytes Absolute Auto 1.3 X10*3/uL (1.2-4.9); Lymphocytes Percent Auto 19.5 % (20-40); Mean Corpuscular HGB Conc 32.5 g/dl (31.0-35.0); Mean Corpuscular Hemoglobin 30.1 pg (27.0-33.0); Mean Corpuscular Volume 92.5 fL (80.0-98.0); Mean Platelet Volume 12.3 fL (9.4-12.3); Monocytes Absolute Auto 0.4 X10*3/uL (0.1-1.2); Monocytes Percent Auto 6.4 % (2-11); Neutrophils Absolute Auto 4.7 x10*3/uL (2.0-8.3); Neutrophils Percent Auto 72.6 % (45-73); Platelet Count 123 X10*3/uL (160-400); Red Blood Count 4.12 X10*6/uL (4.20-5.50); White Blood Count 6.5 X10*3/uL (4.8-10.8)
[2023-03-09 19:34] LABS: Appearance Urine Clear; Color Urine Yellow; Glucose Urine UA Negative (Negative); Leukocyte Esterase Urine Moderate (2+) (Negative); Nitrite Urine Negative (Negative); Specific Gravity - Urine <= 1.005 (1.005-1.025); UMIC TRIGGER UACC YES; Urine Blood Negative (Negative); Urine Ketones Negative (Negative); Urine Protein Negative (Neg-Trace)
[2023-03-09 19:35] LABS: UPreg QC Valid YES; Urine Pregnancy NEGATIVE (NEGATIVE)
[2023-03-09 19:36] LABS: Amphetamine Screen Urine Not Detected (Not Detect); Barbiturates, Urine Not Detected (Not Detect); Benzodiazepines Screen Urine Not Detected (Not Detect); Cannabinoid Screen Urine Not Detected (Not Detect); Cocaine Screen Urine Not Detected (Not Detect); Fentanyl, urine Not Detected (Not Detect); Opiate Screen Urine Not Detected (Not Detect); Phencyclidine Screen Urine Not Detected (Not Detect)
[2023-03-09 19:39] LABS: Bacteria Urine None Seen (None Seen); Hyaline Casts Urine 0-2 /LPF (0-2); RBC Urine 0-2 /HPF (0-2); UACC Culture Trigger YES
[2023-03-09 19:42] LABS: Alanine Aminotransferase 15 U/L (0-31); Albumin Level 4.2 g/dL (3.5-5.0); Alkaline Phosphatase 95 U/L (39-117); Anion Gap 13 (12-20); Aspartate Amino Transferase 16 U/L (5-31); Bilirubin Total 0.2 mg/dL (0.0-1.0); Blood Urea Nitrogen 9 mg/dL (9-16); Calcium 9.2 mg/dL (8.4-10.2); Carbon Dioxide 26 mmol/L (22-29); Chloride 105 mmol/L (96-108); Creatinine Clr Calc Pharmacy 93.3; Estimated Glomerular Filt Rate > 60; Ethanol < 10 mg/dL; Glucose Random 140 mg/dL (60-115); Potassium 3.9 mmol/L (3.3-5.1); Salicylate < 5.0 mg/dL (15-30); Sodium 140 mmol/L (135-145)
[2023-03-09 19:50] LABS: Acetaminophen LAB < 17 mcg/mL (<30)
[2023-03-09] MEDS: risperiDONE 2 MG TABLET PO (21:30)
[2023-03-09] MEDS: Gabapentin 300 MG CAPSULE PO (21:30)
[2023-03-09] MEDS: lamoTRIgine 100 MG TABLET PO (21:30)
[2023-03-09] MEDS: cloNIDine HCL 0.2 MG TABLET PO (21:30)
[2023-03-09] MEDS: LORazepam 0.5 MG TABLET PO (21:30)
[2023-03-09 21:33] VITALS: BP 105/61; PULSE 68; RESP 18; TEMP 36.2; O2SAT 95
[2023-03-10 05:32] VITALS: BP 130/71; PULSE 98; RESP 18; TEMP 36.2; O2SAT 97
--- NOTE | 2023-03-10 07:43 | MHC.CARE ---
CARE Team left messages at [address] [phone] CARE Team left message with program ryan Shields [phone]
[2023-03-10] MEDS: Naltrexone HCl 50 MG TABLET PO (08:12)
[2023-03-10] MEDS: lamoTRIgine 100 MG TABLET PO (08:12)
[2023-03-10] MEDS: Escitalopram Oxalate 5 MG TABLET PO (08:12)
[2023-03-10] MEDS: Gabapentin 300 MG CAPSULE PO (08:12)
[2023-03-10] MEDS: cloNIDine HCL 0.2 MG TABLET PO (08:12)
[2023-03-10] MEDS: LORazepam 0.5 MG TABLET PO (08:12)
[2023-03-10] MEDS: risperiDONE 2 MG TABLET PO (08:13)
[2023-03-10] MEDS: Escitalopram Oxalate 10 MG TABLET PO (08:13)
--- NOTE | 2023-03-10 08:46 | MHC.CARE ---
CARE Team found different [facility] number [phone], staff provided t/w with Manager [employer] number [phone] [place]. T/w left for return call
[2023-03-10 10:05] VITALS: BP 125/73; PULSE 85; RESP 16; TEMP 36.8; O2SAT 97
--- NOTE | 2023-03-10 10:51 | PC.NURSE ---
Abril continues being intrusive with patients and staff which is baseline behavior for her. Abril denies SI/HI/AVH and was compliant with her morning medications. No behavioral concerns and only required frequent redirection to remember boundaries. Appetite good and independent with ADL's. No complaints of pain or discomfort.
== END 2023-03-10 12:39 | disposition home or self-care (01) ==
PROVIDERS: Emergency Provider Emergency Medicine
DX: R45.851 Suicidal ideations (principal); F41.9 Anxiety disorder, unspecified; G80.9 Cerebral palsy, unspecified; R56.9 Unspecified convulsions; F79 Unspecified intellectual disabilities; R82.90 Unspecified abnormal findings in urine
CPT/HCPCS: 36415; 80053; 80143; 80179; 80307; 81001; 81025; 85025; 87086; 99284